=== PATIENT | male | born 1970 | race Caucasian/White ===

== ENCOUNTER → 2021-02-18 01:44 | Outpatient (CLI) | payer BC, SELFPAY ==
[2021-02-18 19:39] LABS: SARS-CoV-2 RNA PCR Negative
== END ==
PROVIDERS: PCP Internal Medicine; Visit Provider Internal Medicine Gastroenterology
DX: Z01.812 Encounter for preprocedural laboratory examination (principal); Z20.822 Contact with and (suspected) exposure to COVID-19
CPT/HCPCS: C9803; U0003; U0005

== ENCOUNTER 2021-02-21 00:55 | Day surgery (SDC) | payer BC, SELFPAY ==
[2021-02-14 15:45] VITALS: BMI 34.0
[2021-02-21 09:59] VITALS: BP 144/90; PULSE 68; RESP 18; TEMP 35.9; O2SAT 98; BMI 34.4
[2021-02-21] MEDS: LACTATED RINGERS 1,000 ML 150 ML IV CONT (10:24)
--- NOTE | 2021-02-21 10:27 | WPDANESEPPF ---
Anes - Initial Pre Proc Eval Procedure: Operation Date: 02/21/21 11:00 Proposed Procedures p Esophagogastroduodenoscopy & Screening Colonoscopy - Jone Nash MD Date/Time: 02/21/21 10:27 Surgeon: Jone Nash MD Pre Op Diagnosis: neoplasm screening, dysphagia Patient Data Age: 50 Gender: M Height: 6 ft 2 in Weight: 121.7 kg Last Vital Signs Temp 96.6 F L 02/21/21 09:59 Pulse 68 02/21/21 09:59 Resp 18 02/21/21 09:59 BP 144/90 H 02/21/21 09:59 Pulse Ox 98 02/21/21 09:59 Allergies Allergy/AdvReac Type Severity Reaction Status Date / Time No Known Allergies Allergy Unverified 02/14/21 15:43 Home Medications Medication Instructions Recorded Confirmed Type travoprost 0.004 % eye drops 1 drp EACH EYE QPM 12/24/20 02/14/21 History aspirin 81 mg tablet,delayed 81 mg PO DAILY 01/04/21 02/14/21 History release atorvastatin 10 mg tablet 10 mg PO QHS #90 tablet 01/04/21 02/14/21 Rx gabapentin 300 mg capsule 300 mg PO BID #90 cap 01/12/21 02/14/21 Rx ibuprofen 800 mg PO TID 02/14/21 02/14/21 History cyclobenzaprine 10 mg tablet 10 mg PO TID PRN #30 tablet 02/21/21 Rx Patient hx anesthesia problems: none Family hx anesthesia problems: none [facility] Past Medical History Medical History (Updated 01/06/21 @ 09:37 by Avani Aguirre MA) Glaucoma Radiculopathy, lumbar region Surgical History Surgical History (Updated 01/04/21 @ 09:51 by YOHANA GriderC) H/O knee surgery Left 2004 and 2005 History of Corrine fundoplication 2011 Family History Family History (Updated 12/24/20 @ 08:44 by Maddi San CMA) Father Stomach cancer Mother Hypertension Cerebrovascular accident Sibling Diabetes mellitus Grandparent Diabetes mellitus Social History Social History (Updated 12/24/20 @ 08:49 by Maddi San CMA) Smoking packs per day: 1 Smoking cigarettes per day: 20.0 Years smoked: 20 Smoking pack-years: 20.00 Smoking status: Former smoker Smoking end date: 11/05/09 Alcohol intake: current Drinks per week: 10 Alcohol use details: wine Living arrangements: with family Gender identity (if verbalized by the patient): Male Spiritual care concerns: No Anes - Eval Final PreProcedure Day of Procedure 02/21/21 10:27 Patient weight: obese Heart: regular rate and rhythm Lungs: clear to auscultation Airway: Mallampati scale class II Neurological: alert and oriented Last oral intake: >/= 8 hours ASA classification: III Emergent: no Anesthetic plan: proceed Anesthesia type and monitoring: general GIVS and standard monitoring Informed Consent: The patient's anesthetic plan and its attendant risks and benefits were discussed with the patient/family/POA. Questions were solicited and answers provided to the satisfaction of the patient/family/POA.
--- NOTE | 2021-02-21 10:48 | PM.HPGS ---
History of Present Illness History of Present Illness Consent: Risks, benefits, and alternatives have been discussed and questions answered. Patient agrees to proceed with procedure. Chief complaint: neoplasm screening, dysphagia Narrative: Bayron Waite is a 50 year old male was been having difficulty swallowing, particularly bread. He did have a fundoplication 9 years ago and his symptoms prior to that were very similar. He is not currently on acid reducing medications. He also presents for screening colonoscopy Review of Systems Review of Systems: All systems reviewed & are unremarkable except as noted in HPI and below PMFSH Past Medical History Medical History Glaucoma Radiculopathy, lumbar region Surgical History Surgical History H/O knee surgery Left 2004 and 2005 History of Corrine fundoplication 2011 Family History Family History Father Stomach cancer Mother Hypertension Cerebrovascular accident Sibling Diabetes mellitus Grandparent Diabetes mellitus Social History Social History Smoking packs per day: 1 Smoking cigarettes per day: 20.0 Years smoked: 20 Smoking pack-years: 20.00 Smoking status: Former smoker Smoking end date: 11/05/09 Alcohol intake: current Drinks per week: 10 Alcohol use details: wine Living arrangements: with family Gender identity (if verbalized by the patient): Male Spiritual care concerns: No Meds Home Medications and Allergies Home Medications Medication Instructions Recorded Confirmed Type travoprost 0.004 % eye drops 1 drp EACH EYE QPM 12/24/20 02/14/21 History aspirin 81 mg tablet,delayed 81 mg PO DAILY 01/04/21 02/14/21 History release atorvastatin 10 mg tablet 10 mg PO QHS #90 tablet 01/04/21 02/14/21 Rx gabapentin 300 mg capsule 300 mg PO BID #90 cap 01/12/21 02/14/21 Rx ibuprofen 800 mg PO TID 02/14/21 02/14/21 History cyclobenzaprine 10 mg tablet 10 mg PO TID PRN #30 tablet 02/21/21 Rx Allergies Allergy/AdvReac Type Severity Reaction Status Date / Time No Known Allergies Allergy Unverified 02/14/21 15:43 Vital Signs Vital Signs - 24 hr 02/21/21 09:59 Temperature 35.9 C L Pulse Rate 68 Respiratory Rate 18 Blood Pressure 144/90 H Pulse Oximetry 98 Exam Const: General: alert Orientation/consciousness: patient oriented x3 Resp: Auscultation: clear to auscultation bilaterally Cardio: Rhythm: regular rhythm GI: GI Palp: Yes Soft to palpation and No Tenderness to palpation present (GI) Neuro: General: patient oriented x3 Assessment and Plan Assessment and plan (1) Dysphagia: Code(s): R13.10 - Dysphagia, unspecified Status: Acute Assessment and Plan: EGD with possible biopsy or dilatation or cautery. (2) Colon cancer screening: Code(s): Z12.11 - Encounter for screening for malignant neoplasm of colon Status: Acute Assessment and Plan: Colonoscopy with possible biopsy or polypectomy or cautery or injection of substances.
[2021-02-21 11:34] VITALS: BP 103/68; PULSE 66; RESP 21; O2SAT 98
[2021-02-21 11:44] VITALS: BP 108/68; PULSE 68; RESP 18; O2SAT 98
[2021-02-21 11:54] VITALS: BP 111/71; PULSE 60; RESP 15; O2SAT 98
[2021-02-21 12:04] VITALS: BP 122/85; PULSE 61; RESP 18; O2SAT 98
== END 2021-02-21 11:45 | disposition home or self-care (01) ==
PROVIDERS: PCP Internal Medicine; Visit Provider Internal Medicine Gastroenterology
PROC: 0DJ08ZZ Inspection of Upper Intestinal Tract, Via Natural or Artificial Opening Endoscopic (ICD-10-PCS; CPT 43235; principal; 2021-02-21 11:00)
DX: Z12.11 Encounter for screening for malignant neoplasm of colon (principal); K57.30 Diverticulosis of large intestine without perforation or abscess without bleeding; K64.8 Other hemorrhoids; R13.10 Dysphagia, unspecified; K21.00 Gastro-esophageal reflux disease with esophagitis, without bleeding; K25.9 Gastric ulcer, unspecified as acute or chronic, without hemorrhage or perforation; K22.70 Barrett's esophagus without dysplasia; H40.9 Unspecified glaucoma; M54.16 Radiculopathy, lumbar region; Z79.82 Long term (current) use of aspirin; Z87.891 Personal history of nicotine dependence; E66.9 Obesity, unspecified; Z68.34 Body mass index [BMI] 34.0-34.9, adult
CPT/HCPCS: 45378; 43239; 87081; 88305; C9803; J2704; J7120; U0003; U0005

== ENCOUNTER 2021-10-31 13:07 | Emergency (ER) | payer BC, SELFPAY ==
[2021-10-31 13:12] VITALS: BP 138/86; PULSE 70; RESP 12; TEMP 36.2; O2SAT 98
--- NOTE | 2021-10-31 14:23 | ED.URI ---
HPI - URI/Sore Throat General Chief Complaint: Upper Respiratory Infection Stated Complaint: cough/congestion Time Seen by Provider: 10/31/21 13:57 Source: patient and RN notes reviewed Mode of arrival: ambulatory Limitations: no limitations History of Present Illness HPI Narrative: Patient presents today complaining of 5-day history of rhinorrhea, cough, fever, congestion and sneezing with chest wall pain with coughing. He has been taking some [id number] medication at home without relief. Denies shortness of breath. States he tested negative for COVID-19 after symptoms were present for less than 24 hours. He has had exposure to COVID-19. He has not been vaccinated against COVID-19. MD elicited complaint: fever, cough and nasal congestion Related Data Home Medications Medication Instructions Recorded Confirmed travoprost 0.004 % eye drops 1 drp EACH EYE QPM 12/24/20 05/25/21 Allergies Allergy/AdvReac Type Severity Reaction Status Date / Time No Known Allergies Allergy Unverified 02/14/21 15:43 Review of Systems Review of Systems: CONSTITUTIONAL: Denies chills, or sweats.+ Any aches, fever EYES: Denies visual changes, redness, or discharge. ENT: Denies sore throat, or otalgia.+, Congestion, sneezing CARDIOVASCULAR: Denies chest pain, palpitations, or edema. RESPIRATORY: Denies dyspnea.+ Cough, chest wall pain GASTROINTESTINAL: Denies abdominal pain, nausea, vomiting, or diarrhea. GENITOURINARY: Denies dysuria or hematuria. SKIN: Denies rash, itching, or wounds. MUSCULOSKELETAL: Denies back pain, joint pain, or myalgia. NEUROLOGIC: Denies headache, numbness, tingling, or weakness. PSYCH: Denies depression or anxiety. [facility] Past Medical History Medical History Glaucoma Radiculopathy, lumbar region Surgical History Surgical History H/O knee surgery Left 2004 and 2006 History of Corrine fundoplication 2011 Family History Family History Father Stomach cancer Mother Hypertension Cerebrovascular accident Sibling Diabetes mellitus Grandparent Diabetes mellitus Social History Social History Smoking packs per day: 1 Smoking cigarettes per day: 20.0 Years smoked: 20 Smoking pack-years: 20.00 Smoking status: Former smoker Smoking end date: 11/05/09 Alcohol intake: current Drinks per week: 10 Alcohol use details: wine Gender identity (if verbalized by the patient): Male Spiritual care concerns: No Comments At time of signature, I have reviewed and agree with nursing past medical, surgical, social and family history unless otherwise noted. Please see nursing chart for further information. There is no relevant family history pertinent to the presenting complaint Exam Narrative: GENERAL: Mildly ill-appearing, well-nourished, and in no acute distress. HEAD: Normocephalic, atraumatic. EYES: EOMI. No redness or drainage. Conjunctivae normal. ENT: Mucous membranes pink and moist. Nares clear. No rhinorrhea. TMs normal bilaterally. Throat normal. Uvula midline. NECK: Normal AROM. Supple. No lymphadenopathy. CHEST: No respiratory distress. Clear to auscultation. HEART: Regular rate and rhythm. No murmur appreciated. Normal peripheral pulses. EXTREMITIES: Normal range of motion. No edema. SKIN: Warm, dry, no rash. Capillary refill normal. Normal skin turgor. NEURO: No focal deficits. Alert and oriented x3. Gait steady. PSYCH: Normal affect. No signs of depression or anxiety. Course Vital Signs Vital signs: Vital Signs Temperature 97.2 F L 10/31/21 13:12 Pulse Rate 70 10/31/21 13:12 Respiratory Rate 12 10/31/21 13:12 Blood Pressure 138/86 10/31/21 13:12 Pulse Oximetry 98 10/31/21 13:12 Temperature
== END 2021-10-31 14:36 | disposition home or self-care (01) ==
PROVIDERS: Emergency Provider Nurse Practitioner; PCP Internal Medicine
DX: J06.9 Acute upper respiratory infection, unspecified (principal); Z20.822 Contact with and (suspected) exposure to COVID-19; Z87.891 Personal history of nicotine dependence; H40.9 Unspecified glaucoma; M54.16 Radiculopathy, lumbar region
CPT/HCPCS: 87426; 99213; C9803; G0463

== ENCOUNTER 2022-11-17 09:08 | Outpatient (CLI) | payer BC, SELFPAY ==
[2022-11-17 17:30] LABS: Alanine Aminotransferase 54 U/L (6-50); Albumin Level 4.7 g/dL (3.5-5.1); Alkaline Phosphatase 36 U/L (38-126); Anion Gap 9 mmol/L (8-16); Aspartate Amino Transferase 48 U/L (17-59); Bilirubin,Total 0.5 mg/dL (0.2-1.3); Blood Urea Nitrogen 20 mg/dL (9-20); Calcium 9.2 mg/dL (8.4-10.2); Carbon Dioxide 29 mmol/L (22-30); Chloride 105 mmol/L (98-107); Cholesterol 221 mg/dL (0-200); Estimated Glomerular Filt Rate > 60; Glucose 80 mg/dL (65-110); HDL Direct 46 mg/dL; Sodium 143 mmol/L (137-145); Triglycerides 243 mg/dL (<150)
[2022-11-17 17:41] LABS: LDL Cholesterol Direct 124 mg/dL
[2022-11-17 17:46] LABS: Basophils Percent Auto 0.6 % (0.2-1.2); Eosinophils Absolute Auto 0.3 K/mm3 (0-0.3); Eosinophils Percent Auto 5.2 % (0-4.4); Hematocrit 50.4 % (42.0-52.0); Hemoglobin 16.9 g/dL (14.0-18.0); Immature Granulocyte Absolute 0.01 K/mm3 (0.00-0.031); Immature Granulocyte Percent A 0.2 % (0-0.5); Lymphocytes Absolute Auto 1.59 K/mm3 (0.9-3.2); Lymphocytes Percent Auto 29.6 % (18.3-44.2); Mean Corpuscular HGB Conc 33.5 g/dl (32-36); Mean Corpuscular Hemoglobin 34.7 pg (26-34); Mean Corpuscular Volume 103.5 fl (80-100); Mean Platelet Volume 10.7 fl (7.4-10.4); Monocytes Absolute Auto 0.7 K/mm3 (0.1-0.6); Monocytes Percent Auto 12.8 % (2.6-8.5); Neutrophils Absolute Auto 2.8 K/mm3 (1.3-6.7); Neutrophils Percent Auto 51.6 % (45.5-73.1); Platelet Count Result 290 k/mm3 (150-375); Red Blood Count 4.87 M/mm3 (4.6-6.20); Red Cell Distribution Width 13.2 % (11.5-14.5); White Blood Count 5.4 K/mm3 (4.5-10.0)
[2022-11-17 18:01] LABS: Prostate Specific Antigen 0.7 ng/mL (< OR = 4.0)
[2022-11-17 18:15] LABS: Vitamin D 25 Hydroxy 23.4 ng/mL
== END 2022-11-17 09:09 | disposition home or self-care (01) ==
LOC: ANHGOSHLAB 09:10
PROVIDERS: PCP Internal Medicine; Visit Provider Clinical Nurse Specialist
DX: Z13.228 Encounter for screening for other metabolic disorders (principal); E78.5 Hyperlipidemia, unspecified; E55.9 Vitamin D deficiency, unspecified; Z12.5 Encounter for screening for malignant neoplasm of prostate
CPT/HCPCS: 36415; 80053; 80061; 82306; 84153; 85025; G0103

== ENCOUNTER 2024-03-11 00:28 | Day surgery (SDC) | payer BC, SELFPAY ==
[2024-02-27 09:34] VITALS: BMI 31.9
[2024-03-11 10:23] VITALS: BP 126/77; PULSE 62; RESP 18; TEMP 36.3; O2SAT 98
[2024-03-11] MEDS: LACTATED RINGERS 1,000 ML 150 ML IV CONT (10:58)
--- NOTE | 2024-03-11 11:12 | WPDANESEPPF ---
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 Patient Data Age: 53 Gender: M Height: 1.88 m Weight: 114.4 kg Last Vital Signs Temp 97.4 F L 03/11/24 10:23 Pulse 62 03/11/24 10:23 Resp 18 03/11/24 10:23 BP 126/77 03/11/24 10:23 Pulse Ox 98 03/11/24 10:23 O2 Del Method Room Air 03/11/24 10:23 Allergies Allergy/AdvReac Type Severity Reaction Status Date / Time No Known Allergies Allergy Verified 03/11/24 10:22 Home Medications Medication Instructions Recorded Confirmed Type travoprost 0.004 % eye drops 1 drp EACH EYE QPM 12/24/20 02/27/24 History (Travatan Z) omeprazole 40 mg capsule,delayed 40 mg PO DAILY #90 caps 11/27/23 02/27/24 Rx release cholecalciferol (vitamin D3) 1,250 1,250 mcg PO WEEKLY #8 tabs 12/03/23 02/27/24 Rx mcg (50,000 unit) tablet atorvastatin 10 mg tablet 10 mg PO QHS #90 tabs 12/27/23 02/27/24 Rx Patient hx anesthesia problems: none Family hx anesthesia problems: none Results Review: All pre-operative results and documents have been reviewed as part of the pre-operative evaluation. [facility] Past Medical History Medical History (Updated 01/07/24 @ 09:59 by Kanchan Lorenzo, LOG GRADER-C) Abnormal swallowing Frazier's esophagus Bulging discs Colon cancer screening Dysphagia Fatigue Glaucoma Hyperlipidemia Numbness of hand Radiculopathy, lumbar region Screening for lipoid disorders Screening for metabolic disorder Screening for prostate cancer Vitamin D deficiency Surgical History Surgical History H/O knee surgery Left 2004 and 2006 History of Corrine fundoplication 2012 Family History Family History Father Stomach cancer Mother Hypertension Cerebrovascular accident Sibling Diabetes mellitus Grandparent Diabetes mellitus Social History Social History Smoking packs per day: 1 Smoking cigarettes per day: 20.0 Years smoked: 20 Smoking pack-years: 20.00 Smoking status: Former smoker Tobacco type: cigarettes Smoking end date: 11/05/09 Alcohol intake: current Drinks per week: 5 Alcohol use details: wine Lack of Transportation: No Lack of Food: Never True Current Housing: I Have Housing Concerned About Future Housing: No Difficulty Paying Gas/Electric Bills: No Difficulty Paying for Meds: No Currently Unemployed: No Education: Master's Degree or Higher Difficulty w/ Childcare or Family Care: No Living arrangements: with family Gender identity (if verbalized by the patient): Male Spiritual care concerns: No Anes - Eval Final PreProcedure Day of Procedure 03/11/24 11:12 Patient weight: obese Heart: regular rate and rhythm Lungs: clear to auscultation Airway: Mallampati scale class II Neurological: alert and oriented Last oral intake: >/= 8 hours ASA classification: II Emergent: no Anesthetic plan: proceed Anesthesia type and monitoring: general GIVS and standard monitoring Results Review: All pre-operative results and documents have been reviewed as part of the pre-operative evaluation. Informed Consent: The patient's anesthetic plan and its attendant risks and benefits were discussed with the patient/family/POA. Questions were solicited and answers provided to the satisfaction of the patient/family/POA.
--- NOTE | 2024-03-11 12:03 | PM.HPGS ---
History of Present Illness History of Present Illness Consent: Risks, benefits, and alternatives have been discussed and questions answered. Patient agrees to proceed with procedure. Chief complaint: Piedra's Esophagus without dyplasia Narrative: Bayron Waite is a 53 year old male with piedra's 2020, using omeprazole but only in rare occasions Review of Systems Review of Systems: All systems reviewed & are unremarkable except as noted in HPI and below PMFSH Past Medical History Medical History (Updated 01/07/24 @ 09:59 by ELKIN Grider) Abnormal swallowing Piedra's esophagus Bulging discs Colon cancer screening Dysphagia Fatigue Glaucoma Hyperlipidemia Numbness of hand Radiculopathy, lumbar region Screening for lipoid disorders Screening for metabolic disorder Screening for prostate cancer Vitamin D deficiency Surgical History Surgical History H/O knee surgery Left 2004 and 2005 History of Corrine fundoplication 2012 Family History Family History Father Stomach cancer Mother Hypertension Cerebrovascular accident Sibling Diabetes mellitus Grandparent Diabetes mellitus Social History Social History Smoking packs per day: 1 Smoking cigarettes per day: 20.0 Years smoked: 20 Smoking pack-years: 20.00 Smoking status: Former smoker Tobacco type: cigarettes Smoking end date: 11/05/09 Alcohol intake: current Drinks per week: 5 Alcohol use details: wine Lack of Transportation: No Lack of Food: Never True Current Housing: I Have Housing Concerned About Future Housing: No Difficulty Paying Gas/Electric Bills: No Difficulty Paying for Meds: No Currently Unemployed: No Education: Master's Degree or Higher Difficulty w/ Childcare or Family Care: No Living arrangements: with family Gender identity (if verbalized by the patient): Male Spiritual care concerns: No Meds Home Medications and Allergies Home Medications Medication Instructions Recorded Confirmed Type travoprost 0.004 % eye drops 1 drp EACH EYE QPM 12/24/20 02/27/24 History (Travatan Z) omeprazole 40 mg capsule,delayed 40 mg PO DAILY #90 caps 11/27/23 02/27/24 Rx release cholecalciferol (vitamin D3) 1,250 1,250 mcg PO WEEKLY #8 tabs 12/03/23 02/27/24 Rx mcg (50,000 unit) tablet atorvastatin 10 mg tablet 10 mg PO QHS #90 tabs 12/27/23 02/27/24 Rx Allergies Allergy/AdvReac Type Severity Reaction Status Date / Time No Known Allergies Allergy Verified 03/11/24 10:22 Vital Signs Vital Signs - 24 hr 03/11/24 10:23 Temperature 97.4 F L Pulse Rate 62 Respiratory Rate 18 Blood Pressure 126/77 Pulse Oximetry 98 Oxygen Delivery Room Air Exam Const: General: comfortable and no acute distress HENMT: Face/Nose/Sinus: Normal nares present Eyes: General: appearance normal, both eyes and all related structures Neck: Neck: no JVD Resp: Auscultation: clear to auscultation bilaterally Cardio: Rate: regular rate Rhythm: regular rhythm GI: Inspection: non-distended GI Palp: Yes Soft to palpation Skin: General skin exam: normal color Neuro: General: gait normal Speech: normal speech Extrem: General: normal to inspection Psych: Mental Status: mental status grossly normal Assessment and Plan Assessment and plan (1) Piedra's esophagus: Code(s): K22.70 - Piedra's esophagus without dysplasia Status: Acute Assessment and Plan: egd with bx
[2024-03-11 12:19] VITALS: BP 98/52; PULSE 62; RESP 18; O2SAT 100
[2024-03-11 12:29] VITALS: BP 102/58; PULSE 60; RESP 12; O2SAT 97
[2024-03-11 12:39] VITALS: BP 104/64; PULSE 57; RESP 13; O2SAT 97
== END 2024-03-11 12:50 | disposition home or self-care (01) ==
PROVIDERS: PCP Internal Medicine; Visit Provider Internal Medicine Gastroenterology
PROC: 0DJ08ZZ Inspection of Upper Intestinal Tract, Via Natural or Artificial Opening Endoscopic (ICD-10-PCS; CPT 43235; principal; 2024-03-11 11:30)
DX: K22.70 Barrett's esophagus without dysplasia (principal); K29.70 Gastritis, unspecified, without bleeding; E78.5 Hyperlipidemia, unspecified; H40.9 Unspecified glaucoma; E55.9 Vitamin D deficiency, unspecified; Z87.891 Personal history of nicotine dependence; E66.9 Obesity, unspecified; Z68.32 Body mass index [BMI] 32.0-32.9, adult
CPT/HCPCS: 43239; 88305; 88342; J2704; J7120